=== PATIENT | female | born 1975 | race Two or more races ===

== ENCOUNTER 2018-11-29 20:58 | Emergency (ER) | payer BC, OTHER ==
[~2018-11-29] VITALS: Ht 157.5 cm; Wt 86.6 kg
[~2018-11-29 20:58] MED LIST: DESO1TAB4 PO
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
[2018-11-29] MEDS ORDERED: IBUPROFEN 600 MG TABLET PO ONE ×2 (23:01→23:30)
--- NOTE | 2018-11-29 23:18 | NUR ---
PT TO CT
--- NOTE | 2018-11-30 00:38 | NUR ---
Patient discharged to home in stable condition. Written and verbal after care instructions given. Patient verbalizes understanding of instruction. Pt ambulatory with a steady gait
[2018-11-30 00:39] VITALS: BP 135/82
== END 2018-11-30 00:40 | disposition home or self-care (01) ==
LOC: ER 21:02
DX: S50.12XA Contusion of left forearm, initial encounter (principal); S09.8XXA Other specified injuries of head, initial encounter; R55 Syncope and collapse; Z88.0 Allergy status to penicillin; W22.11XA Striking against or struck by driver side automobile airbag, initial encounter; Y93.89 Activity, other specified; Y92.488 Other paved roadways as the place of occurrence of the external cause; Y99.8 Other external cause status
CPT/HCPCS: 36415; 70450-TC; 73060-TC; 73090-TC; 82962-TC; 84702-TC